=== PATIENT | female | born 1980 | race Caucasian/White ===

== ENCOUNTER 2017-08-21 11:31 | Day surgery (SDC) | payer BC ==
[2017-08-18 14:27] LABS: Absolute Lymphocytes (CBC) 2.9 K/uL (0.7-4.9); Absolute Monocytes 0.4 K/uL (0.1-1.3); Absolute Neutrophil 7.1 K/uL (1.8-8.0); Basophils % 0.7 % (0-1.3); Eosinophils % 2.8 % (0-4.4); Hematocrit 38.1 % (36.0-45.0); MCH 26.3 pg (27.0-35.0); MCV 81.8 fL (80-100); MPV 9.8 fL (7.6-11.3); Monocytes % 3.7 % (3.3-12.3); RBC Red Blood Cell Count 4.65 M/uL (3.86-4.86)
[2017-08-18 14:36] LABS: BUN Blood Urea Nitrogen 13 mg/dL (6-20); Bicarbonate 26 mEq/L (21-31); Glucose Level 82 mg/dL (65-120); Sodium Level 136 mEq/L (135-145)
[2017-08-21] MEDS ORDERED: Ringers Lactate 1,000 ML IV ONE (11:57)
[2017-08-21] MEDS ORDERED: LIDOCAINE 2% MPF 5 ML VIAL ONE (13:24)
[2017-08-21] MEDS ORDERED: PROPOFOL 200 MG/20 ML VIAL IV ONE ×2 (13:24→14:40)
[2017-08-21] MEDS ORDERED: MIDAZOLAM HCL 2 MG/2 ML INJ ONE (13:24)
[2017-08-21] MEDS ORDERED: FENTANYL CITR 100 MCG/2 ML ONE (13:24)
[2017-08-21] MEDS ORDERED: LIDOCAINE 1% W/EPI 1:100,000 MDV 50 ML VIAL ONE (13:42)
[2017-08-21] MEDS ORDERED: SILVER NITRATE 1 APPL TOP ONE (14:11)
[2017-08-21] MEDS ORDERED: KETOROLAC 30 MG/ML INJ ONE (14:48)
[2017-08-21] MEDS ORDERED: IBUPROFEN 200 MG TAB PO ONE (15:16)
--- NOTE | 2017-08-22 01:52 | OP ---
Date of Procedure: 08/21/2017 Surgeon: Jessica Albarran MD Preoperative Diagnoses: 1.Heavy menstrual bleeding with irregular cycles. 2.Leiomyomata. Postoperative Diagnoses: 1.Heavy menstrual bleeding with irregular cycles. 2.Leiomyomata. Procedures Performed: Hysteroscopy, dilation and curettage. Anesthesia: MAC plus paracervical block. Specimens: Endometrial curettings. Complications: No complications. Drains: No drains. Condition: Stable. Indications: The patient is a 36-year-old with heavy menstrual bleeding. The patient with risk fact ors of being overweight, a BMI close to 50, and anemia. On transvaginal ultrasound, the lining was m ostly unremarkable; however, needed to have some evaluation of whether the posterior myoma is submuco gabino. If it was, then plan was to resect the myoma and perform endometrial sampling to rule out atypi a or malignancy. Description Of Procedure: After informed consent was verified, she was taken back to the OR and plac ed in a supine position on the operating table. After MAC was given, she was placed in dorsal lithot maria guadalupe position. Pelvic examination was performed. Uterus was anteflexed. No adnexal masses. Speculu m was placed to expose the cervix. Anterior lip was injected with 1% lidocaine mixed with 1:100,000 epinephrine; 8 cc anterior lip and 4 o'clock and 8 o'clock positions, 5 cc on each side. Then, prep x3 with Betadine was done. Diagnostic hysteroscopy was performed with 30-degree lens and normal sali ne for distention medium. Direct hysteroscopy through the cervical canal of the uterine cavity was p erformed. Uterine cavity was found to be empty. The lining appeared to be even. Both tubal ostia w ere visualized, scope removed, and endometrial curettings performed. All these were handed off for p ermanent pathology. All the instruments were removed. Instrument, needle, and sponge counts were do ne and were correct at the end of the case. The patient tolerated the procedure well. She will foll ow up with me in 1 week for her appointment which she has in the office. GEORGE/FLAQUITO Voice ID: [id number] Report ID: [id number]
== END 2017-08-21 15:30 | disposition home or self-care (01) ==
LOC: OR 11:31
PROVIDERS: ATTEND Obstetrics & Gynecology
PROC: 0UJD8ZZ Inspection of Uterus and Cervix, Via Natural or Artificial Opening Endoscopic (ICD-10-PCS; 2017-08-21)
PROC: 0UDB7ZX Extraction of Endometrium, Via Natural or Artificial Opening, Diagnostic (ICD-10-PCS; principal; 2017-08-21 12:15)
DX: N92.1 Excessive and frequent menstruation with irregular cycle (principal); D25.9 Leiomyoma of uterus, unspecified; D64.9 Anemia, unspecified; I10 Essential (primary) hypertension; E66.9 Obesity, unspecified; Z90.49 Acquired absence of other specified parts of digestive tract
CPT/HCPCS: 36415; 80048; 81025; 85025; 88305; J2250; J3010